=== PATIENT | male | born 2005 | race Caucasian/White ===

== ENCOUNTER 2024-05-24 12:17 | Emergency (ER) | payer MEDICAID ==
[~2024-05-24] VITALS: Ht 172.7 cm; Wt 122.4 kg
[2024-05-24 12:31] VITALS: O2SAT 100
[2024-05-24] MEDS ORDERED: AMOX1TAB16 MT (13:06)
[2024-05-24] MEDS ORDERED: SULF1TAB48 MT (13:06)
[2024-05-24 13:23] VITALS: BP 136/70; PULSE 72; RESP 16; TEMP 37; O2SAT 100
== END 2024-05-24 13:24 | disposition home or self-care (01) ==
LOC: ER 12:37
DX: L03.213 Periorbital cellulitis (principal); Z98.890 Other specified postprocedural states; Z98.84 Bariatric surgery status
CPT/HCPCS: 99283